=== PATIENT | male | born 2000 | race African-American/Black ===

== ENCOUNTER 2024-09-07 | Emergency (ER) | payer SELFPAY ==
[~2024-09-07] VITALS: Ht 167.6 cm; Wt 73.0 kg
[2024-09-07 00:15] VITALS: TEMP 36.9
[2024-09-07] MEDS ORDERED: METHYLPREDNISOLONE 40MG/ML INJ IV ONE (01:30)
[2024-09-07 01:54] VITALS: PULSE 110; RESP 18; O2SAT 96
[2024-09-07] MEDS: IPRATROPIUM/ALBUTEROL 0.5-3(2.5)MG/3ML NEB HHN ONE (01:54)
[2024-09-07] MEDS: METHYLPREDNISOLONE SOD SUCC 125MG/2ML (ACT-O-VIAL) IM NR (03:07)
[2024-09-07] MEDS ORDERED: ALBU18HF2 IH (04:18)
[2024-09-07] MEDS ORDERED: PRED5TAB48 MT (04:18)
[2024-09-07 04:54] VITALS: BP 116/91; PULSE 109; RESP 18; O2SAT 95
== END 2024-09-07 04:54 | disposition home or self-care (01) ==
LOC: ER
DX: J45.901 Unspecified asthma with (acute) exacerbation (principal)
CPT/HCPCS: 94640; 96372; 99283; J2919; Z7610 ×3; J2920